=== PATIENT | male | born 1980 | race African-American/Black ===

== ENCOUNTER 2019-07-18 09:41 | Emergency (ER) | payer OTHER ==
[~2019-07-18] VITALS: Ht 198.1 cm; Wt 129.3 kg
[~2019-07-18 09:41] MED LIST: LISINOPRIL10 MG PO; NORFLEX100 MG PO; TRAMADOL 50 MG50 MG PO
[2019-07-18 10:19] LABS: ABSOLUTE NEUTROPHILS 4.1 thou/uL (1.4-8.2); BASOPHILS 0.7 % (0.0-2.0); EOSINOPHILS 3.3 % (0.0-3.0); HEMATOCRIT 46.7 % (42.0-52.0); HEMOGLOBIN 15.5 gm/dL (14.0-18.0); LYMPHOCYTES 22.6 % (24.0-44.0); MCH 28.2 pg (26.0-34.0); MCHC 33.2 g/dL (28.0-37.0); MCV 84.8 fL (80.0-100.0); MONOCYTES 9.5 % (1.0-8.0); PLATELET COUNT 200 thou/uL (150-400); POLYS 63.9 % (36.0-66.0); RDW 14.5 % (10.5-14.5); WBC 6.4 thou/uL (4.0-11.0)
[2019-07-18 10:34] LABS: ANION GAP 11 mmol/L (7-16); BUN 13 mg/dL (7-18); CALCIUM 9.3 mg/dL (8.5-10.1); CHLORIDE 102 mmol/L (98-107); CO2 26 mmol/L (21-32); CREATININE 1.2 mg/dL (0.7-1.3); GLUCOSE 108 mg/dL (74-106); SODIUM 139 mmol/L (136-145)
[2019-07-18 10:43] LABS: TROPONIN-I <0.06 ng/mL (<0.06)
[2019-07-18] MEDS ORDERED: VALIUM5 MG PO (11:16)
[2019-07-18 11:19] VITALS: BP 150/92
--- NOTE | 2019-07-19 08:05 | EKG ---
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1980 Requested By: Ying Anderson Order Number: [id number] : Jimmy Davidson Measurements Intervals Hilliards Rate: 66 P: 52 MT: 174 QRS: -6 QRSD: 99 T: 39 QT: 415 QTc: 435 Interpretive Statements Sinus rhythm Left atrial enlargement RSR' in V1 or V2, right VCD or RVH Minimal ST elevation, anterior leads Compared to ECG 08/01/2015 14:59:00 Atrial abnormality now present Right ventricular hypertrophy now present RSR' in V1 or V2 now present ST (T wave) deviation now present Electronically Signed On 07-19-2019 8:03:50 CDT by Jimmy Davidson [email or web address] <ELECTRONICALLY SIGNED> By: Jimmy Davidson MD 07/19/19 0803 1002 1002 Jimmy Davidson MD /EPI
== END 2019-07-18 11:19 | disposition home or self-care (01) ==
LOC: ER 09:41
PROVIDERS: Emergency Medicine Emergency Medical Services
DX: M54.12 Radiculopathy, cervical region (principal); M25.512 Pain in left shoulder; R07.9 Chest pain, unspecified; I10 Essential (primary) hypertension; F17.210 Nicotine dependence, cigarettes, uncomplicated